=== PATIENT | male | born 1970 | race American Indian/Alaskan Native ===

== ENCOUNTER 2016-12-20 11:24 | Day surgery (SDC) | payer BC ==
--- NOTE | 2016-12-19 14:52 | Anesthesia Consultation ---
Anesthesia Consult and Med Hx Date of service: 12/19/16 - Airway Anesthetic Teeth Evaluation: Good ROM Head & Neck: Adequate Mental/Hyoid Distance: Adequate Mallampati Class: Class III Intubation Access Assessment: Probably Good - Pulmonary Exam CTA: Yes - Cardiac Exam Cardiac Exam: RRR - Pre-Operative Health Status ASA Pre-Surgery Classification: ASA3 Proposed Anesthetic Plan: General, MAC - Pulmonary Hx Asthma: Yes (albuterol) - Central Nervous System Hx Psychiatric Problems: No - Other Systems Hx Alcohol Use: Yes (occas) Hx Cancer: No
[~2016-12-20 11:24] MED LIST: LACTATED RINGERS 1,000 ML IV SCH; VERSED IV NR
[2016-12-20] MEDS ORDERED: ceFAZolin 2 GM in NACL 0.9% 100 ML IV ONE (12:00)
[2016-12-20] MEDS ORDERED: MARCAINE-EPI/PF 0.5%-1:200,000 INFILTRATI ONE ×3 (12:13→12:15)
[2016-12-20] MEDS ORDERED: MARCAINE 0.5% 0 ML INFILTRATI ONE (12:13)
[2016-12-20] MEDS ORDERED: DECADRON ONE (12:25)
[2016-12-20] MEDS ORDERED: XYLOCAINE MPF 2% ONE (12:25)
[2016-12-20] MEDS ORDERED: ZOFRAN ONE (12:25)
[2016-12-20] MEDS ORDERED: SUBLIMAZE ONE (12:26)
[2016-12-20] MEDS ORDERED: DIPRIVAN 10 MG/ML IV ONE (12:26)
--- NOTE | 2016-12-20 12:29 | Anesthesia Day of Surgery ---
Anesthesia Day of Surgery - Day of Surgery Patient Examined: Yes Patient H&P Reviewed: Yes Patient is NPO: Yes
[2016-12-20] MEDS ORDERED: PEPCID IV ONE (12:42)
[2016-12-20] MEDS ORDERED: ZEMURON IV ONE (12:51)
[2016-12-20] MEDS ORDERED: QUELICIN ONE (12:56)
[2016-12-20] MEDS ORDERED: VERSED IV NR (13:00)
[2016-12-20] MEDS ORDERED: ANCEF/STERILE WATER 2 GM/20 ML 2 GM/20 ML SYRINGE IV NR (13:00)
--- NOTE | 2016-12-20 13:42 | Discharge Summary ---
Short Stay Discharge Plan Activity: other (august d/c when awake & stable. keep dressings dry x 5 days ) Weight Bearing Status: Full Weight Bearing Diet: regular Wound: keep clean and dry Follow up with: JEFERSON HUDSON MD [Staff Physician] - 12/25/16
[2016-12-20] MEDS ORDERED: NACL 0.9% IR ONE (13:43)
[2016-12-20] MEDS ORDERED: NEO SYNEPHRINE/NS Syringe(OR USE) IV ONE (14:00)
--- NOTE | 2016-12-20 15:33 | Post Anesthesia Evaluation ---
- Post Anesthesia Evaluation Patient Participated: Yes Airway Patent: Yes Stable Respiratory Function: Yes Nausea/Vomiting: No Temp > 96.8F: Yes Pain Manageable: Yes Adequeate Hydration: Yes Anesthesia Complications: No Block Receding Appropriately: Not Applicable Patient on Ventilator: No
[2016-12-20 16:11] VITALS: BP 139/96
--- NOTE | 2016-12-20 17:26 | Operative Report ---
PREOPERATIVE DIAGNOSIS: Posterior subcutaneous left neck nodule. POSTOPERATIVE DIAGNOSIS: Posterior subcutaneous subq left neck nodule. PROCEDURE: Excision of aforementioned nodule. SURGEON: Nnamdi Oneill M.D. ANESTHESIA: General. ESTIMATED BLOOD LOSS: Minimal. No drains or complications. DESCRIPTION OF PROCEDURE: The patient was taken up to the operating room and placed in a prone position. The palpable nodule had been outlined with a marking pencil. A 0.5% Marcaine with epinephrine was infiltrated over the area to be incised. A 15 blade was used to incise skin and subcutaneous tissue. Double skin hooks were used to retract the skin. Needle tip electrocautery as well as blunt and sharp dissection were used to delineate the nodule. The nodule appears to be lipomatous in nature. The nodule was slowly dissected free and removed in its entirety. The area was irrigated copiously and dried. Checked for hemostasis and noted to be dry. Subcutaneous was closed with interrupted 3-0 Vicryl suture. Skin was closed with running subcuticular 4-0 Vicryl. Steri-Strips, 2 x 2's and Tegaderm were applied. The patient tolerated the procedure well and left OR in stable condition. JOB# [id number] HARIKA/JERRY
== END 2016-12-20 15:40 | disposition home or self-care (01) ==
LOC: OR 11:24
PROVIDERS: ATTEND Surgery
DX: D17.0 Benign lipomatous neoplasm of skin and subcutaneous tissue of head, face and neck (principal); J45.909 Unspecified asthma, uncomplicated; Z72.89 Other problems related to lifestyle
CPT/HCPCS: 11422; 12041; 88304; J0330; J0690; J1100; J2250; J2370; J2405; J2704; J3010; J7120; 88307